=== PATIENT | male | born 2000 | race African-American/Black ===

== ENCOUNTER 2020-01-13 16:14 | Emergency (ER) | payer MEDICAID, SELFPAY ==
--- NOTE | 2020-01-13 17:23 | CT ---
CT head noncontrast HISTORY: Headache. COMPARISON: 07/10/2014. FINDINGS: There is no evidence of acute intracranial hemorrhage or infarct. The ventricles appear normal in size, shape and position. There is no mass effect or shift of midline structures. Visualized paranasal sinuses remain well aerated. IMPRESSION : No abnormalities are demonstrated.
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
== END 2020-01-13 18:08 | disposition home or self-care (01) ==
LOC: MADERS 16:14
DX: S16.1XXA Strain of muscle, fascia and tendon at neck level, initial encounter (principal); R51 Headache; V43.52XA Car driver injured in collision with other type car in traffic accident, initial encounter
CPT/HCPCS: 70450; 72125